=== PATIENT | female | born 1975 | race Caucasian/White ===

== ENCOUNTER 2018-03-14 14:47 | Emergency (ER) | payer BC ==
[~2018-03-14] VITALS: Ht 167.6 cm; Wt 72.6 kg
[2018-03-14] MEDS ORDERED: KETOROLAC TROMETHAMINE 60 MG/2 ML VIAL IM ONE (16:15)
--- NOTE | 2018-03-14 17:22 | Diagnostic Imaging Report ---
Cervical spine complete Indication: Right neck pain for one week Technique: AP, lateral, swimmer's, odontoid and bilateral oblique views of cervical spine obtained. Comparison: None Findings: Cervical vertebral bodies can be visualized to C7. There is diffuse straightening of the cervical spine with anterolisthesis of C4 on C5 of 2 mm. No prevertebral soft tissue swelling. There is disc space narrowing at C5-6 and C6-7, mild. Minimal osteophytic lipping at C5-6. The facets and spinous processes are normally aligned. There is facet arthropathy at C7-T1. Alignment is maintained on the AP view. The lateral masses of C1 are symmetric. The dens is obscured by the occiput. There is mild right foraminal narrowing at C5-6. Mild to moderate left foraminal narrowing at C6-7. Skull base and upper chest are unremarkable. A peripherally calcified nodule in the lower neck measures 1.8 x 1.0 cm. IMPRESSION: 1. Diffuse straightening of the cervical spine with 2 mm of anterolisthesis of C4 on C5. This may be the result of spasm. 2. Degenerative changes as described above. 3. Calcified nodule in the lower neck may be related to the thyroid gland. Recommend further evaluation of the thyroid with ultrasound on an outpatient basis. Signed by: Dr. Ronel Masterson MD on 03/14/2018 5:19 PM
== END 2018-03-14 17:51 | disposition home or self-care (01) ==
LOC: FSED 14:47
DX: M25.512 Pain in left shoulder (principal); M79.622 Pain in left upper arm; M25.522 Pain in left elbow; M79.632 Pain in left forearm; M54.12 Radiculopathy, cervical region
CPT/HCPCS: 72050; 99284; J1885